=== PATIENT | male | born 1955 | race Asian ===

== ENCOUNTER → 2016-07-13 | Outpatient (CLI) | payer BC ==
[~2016-07-13] MED LIST: CLR10 PO; DOCU100C31 PO; DOCUSATE PO; FLNIN NAE; FLUT0.15 NAE; IBUP-1050 PO; LINA1CAP2 PO; METHPOW7 PO; MULT-506 PO; POLY335019 PO; citrucel PO
[2016-07-13 12:45] LABS: BASO % 0.3 %; BASO ABS # 0.02 K/uL (0-0.2); COMPLETE YES; EOS % 3.4 %; IG% 0.3 %; LYMPH % 37.5 %; LYMPH ABS # 2.39 K/uL (1.2-3.4); MEAN CORPUSCULAR HEMOGLOBIN 29.1 pg (25-34); MEAN CORPUSCULAR HGB CONC 33.9 g/dl (32-36); MEAN PLATELET VOLUME 10.3 fL (7.4-10.4); MONO % 7.8 %; NEUT % 50.7 %; PLATELET COUNT 237 K/uL (130-400); RED BLOOD COUNT 4.77 M/uL (4.7-6.1); WHITE BLOOD COUNT 6.38 K/uL (4.8-10.8)
[2016-07-13 14:29] LABS: ALT/SGPT 60 U/L (12-78); BLOOD UREA NITROGEN 17 mg/dl (7-18); BUN/CREATININE RATIO 15.5 (10-20); CALCIUM 8.8 mg/dl (8.5-10.1); CARBON DIOXIDE 28 mmol/L (21-32); CHLORIDE 106 mmol/L (98-107); GLUCOSE 97 mg/dl (70-99); POTASSIUM 4.5 mmol/L (3.5-5.1); SODIUM 140 mmol/L (136-145)
[2016-07-13 14:59] LABS: ALB/GLOB RATIO 1.1 (0.9-2); ALKALINE PHOSPHATASE 96 U/L (45-117); AST/SGOT 28 U/L (15-37)
[2016-07-17 22:32] LABS: CHROMOGRANIN A <5 ng/mL (< OR = 15); SEROTONIN** TC 29851 137 ng/mL (56-244)
== END | disposition home or self-care (01) ==
LOC: C.LAB1850 11:24
PROVIDERS: ATTEND Internal Medicine Pulmonary Disease
DX: R10.11 Right upper quadrant pain (principal); R14.0 Abdominal distension (gaseous); C7A.020 Malignant carcinoid tumor of the appendix

== ENCOUNTER → 2016-07-14 | Outpatient (CLI) | payer BC ==
[~2016-07-14] MED LIST changes: +OPTIRAY 320 IV PRN
--- NOTE | 2016-07-14 08:32 | DIAGNOSTIC IMAGING REPORT ---
CT SCAN OF THE ABDOMEN AND PELVIS WITH IV CONTRAST CLINICAL HISTORY: Generalized abdominal pain. Bloating. COMPARISON STUDY: Abdominal CT dated 06/28/2011. PET/CT dated 11/16/2011. TECHNIQUE: Following the IV administration of 92 cc of Optiray 320, CT scan of the abdomen and pelvis is performed from the lung bases to the proximal femora. Images are reviewed in the axial, sagittal, and coronal planes. IV contrast was administered without complication. Automated dose control exposure was utilized. CT DOSE: 404.85 mGy.cm FINDINGS: Lung bases: The heart is normal in size and without pericardial effusion. A 10 mm groundglass lesion in the right lower lobe is similar appearance to studies performed in 2012. No airspace consolidation or pleural effusion is identified. Liver: The contrast-enhanced liver is normal in size, contour, and attenuation. There is no intrahepatic biliary ductal dilatation. The hepatic veins and portal veins are patent. Gallbladder: Surgically absent noting clips in the gallbladder fossa. Spleen: Normal in size and attenuation. Pancreas: Unremarkable. Adrenal glands: Unremarkable. Kidneys: The contrast enhanced kidneys demonstrate mild cortical atrophy and are without hydronephrosis. The kidneys enhance symmetrically. A subcentimeter cortical hypodensity in the left kidney seen on image #153 likely represents a cyst but is too small for definitive characterization. Abdominal vasculature: The abdominal aorta is normal in course and caliber. Bowel: The small bowel and colon are normal in course and caliber. There is mild to moderate colonic fecal retention. The appendix is surgically absent. Peritoneum: There is no intraperitoneal free air or abdominal ascites. Lymphadenopathy: None. Pelvic viscera: There is median lobe hypertrophy of the prostate gland. The bladder wall is mildly thickened and trabeculated consistent with chronic caliber obstruction. There are small bilateral fat-containing inguinal hernias. Skeletal structures: No lytic or blastic lesions are seen. IMPRESSION: 1. There are no acute infectious or inflammatory findings in the abdomen or pelvis. 2. Prostatomegaly with findings suggestive of chronic bladder outlet obstruction. 3. A 10 mm groundglass lesion in the right lower lobe is similar appearance to study dated 2011. A low-grade neoplasm remains the diagnosis of exclusion. 4. Additional findings as above. Electronically signed by: Alejandro Rothman M.D. 07/14/2016 8:30 AM Dictated Date/Time: 07/14/2016 8:23 AM
== END | disposition home or self-care (01) ==
LOC: C.CTS 06:46
PROVIDERS: ATTEND Internal Medicine Pulmonary Disease
DX: R14.0 Abdominal distension (gaseous) (principal); R10.9 Unspecified abdominal pain; R10.11 Right upper quadrant pain; N40.0 Benign prostatic hyperplasia without lower urinary tract symptoms; R91.1 Solitary pulmonary nodule

== ENCOUNTER → 2016-08-21 | Day surgery (SDC) | payer BC ==
[~2016-08-21] VITALS: Ht 165.1 cm; Wt 75.0 kg
[~2016-08-21] MED LIST changes: +500ML BSSPLUS 0.5ML EPI1:1000 IRRIG ONE; +ACETAMINOPHEN 325 MG TAB PO PRN; +ATROPINE SULFATE 0.1 MG/ML 5ML SYR IV PRN; +ATROPINE SULFATE 1% OP OINT PER APPLICATION CHARGE ONE; +ATROPINE SULFATE 1% OP SOLN 2 ML BTL ONE; +BSS FLUSH ONE; +BUPIVACAINE HCL 0.75% 10 ML AMP/VIAL ONE; +CEFAZOLIN SOD 1 GM VIAL ONE; +DEXAMETHASONE SOD INJ 4 MG/ML VIAL ONE; +EpHEDrine SULFATE INJ 50 MG/ML AMP IV PRN; +EpINEphrine INJ 1MG/ML AMP 1 MG/ML AMP ONE; +FENTANYL CITRATE INJ 50 MCG/1 ML 2 ML VIAL IV PRN; +HYALURONIDASE HUMAN 150 UNIT/ML INJ ONE; +INDOCYANINE GREEN 25 MG/10 ML ONE; +LACTATED RINGER'S 1000ML 500 ML IV SCH; +LIDOCAINE MPF 4% INJ INJ ONE; +MIDAZOLAM HCL 1 MG/ML 2ML VIAL ONE; +NEOMYCIN/POLYMYX/DEXAMETH OP OINT PER APP CHARGE ONE; +OCUCOAT 1 ML SOLN IO ONE; +ONDANSETRON INJ 2 MG/ML 2 ML VIAL IV PRN; -OPTIRAY 320 IV PRN; +PHENYLEPHRINE HCL 10% OP SOLN PER DROP CHARGE ONE; +POVIDONE-IODINE OP SOLN 30 ML BTL OPR ONE; +PROPARACAINE 0.5% OP SOLN PER DROP CHARGE OPR SCH; +PROPOFOL IV EMULSION 10 MG/ML 20 ML VIAL IV ONE; +TIMOLOL MALEATE 0.5% OP SOLN PER DROP CHARGE ONE; +TRIAMCINOLONE ACETONIDE OPHTH 40 MG/ML VIAL STERILE IO ONE
[2016-08-21] MEDS: PHENYLEPHRINE HCL 2.5% OP SOLN PER DROP CHARGE OPR SCH ×2 (07:46→07:51)
[2016-08-21] MEDS: TROPICAMIDE 1% OP SOLN PER DROP CHARGE OPR SCH ×2 (07:47→07:52)
[2016-08-21 08:09] VITALS: Ht 165.1 cm; Wt 75.0 kg
--- NOTE | 2016-08-21 08:48 | History & Physical Bridge - SC ---
H&P Re-Evaluation Bridge Note: Pt has a retinal detachment right eye and is here for vitrectomy right eye. I have examined the patient, reviewed the History & Physical and in the interval since the performance of the History & Physical I have noted the following changes of clinical significance: No changes noted
[2016-08-21 10:09] VITALS: TEMP 36.4
--- NOTE | 2016-08-21 10:12 | [facility] Operative Report ---
Operative Report Date of Service August 21, 2016. Operative Report PREOPERATIVE DIAGNOSIS: Retinal detachment, right eye. ICD 10: H33.011 POSTOPERATIVE DIAGNOSIS: same. PROCEDURE: 1. Pars plana vitrectomy, 23 gauge. 2. Fluid-air exchange. 3. Endolaser. 4 Air-gas exchange with SF6 20%. All to the right eye. CPT CODE: 14104 SURGEON: Roi Lawson D.O. COMPLICATIONS: None. ESTIMATED BLOOD LOSS: None. SPECIMENS: None. ANESTHESIA: Retrobulbar block and MAC. INDICATIONS FOR PROCEDURE: Surgery is indicated to decrease risk of vision loss and potentially improve vision. CONSENT: The risks, benefits and alternatives were discussed with the patient including but not limited to decreased visual acuity, failure to achieve desired results, loss of the eye, infection, pain, glaucoma, lens changes, retinal tears, retinal detachment, the need for more procedures, drooping of the eyelid, blindness, and double vision. The patient is aware of risks and consents to the surgery. Consent is signed and on the chart. OPERATION AND FINDINGS: The patient was brought to the operating room where the patient was identified by name, date, and medical record number. The surgical site was confirmed with the informed written consent. The patient was sedated by the anesthesiology team after which a 50:50 mixture of 4% lidocaine and 0.75% bupivacaine with hyaluronidase was administered in a standard retrobulbar fashion. A total of 4 ml was administered without difficulty. The patient was then prepped and draped in the usual sterile manner for retinal surgery. A wire lid speculum was placed and an Reed 23-gauge trocar cannula system was employed. The inferior temporal trocar cannula was first placed in an angled fashion 3.75mm posterior to the surgical limbus and the infusion cannula was inserted into this cannula after which the intravitreal position was verified prior to turning the infusion on. Two more trocar cannulas were then inserted in an angled fashion, one in the superior temporal, and one in the superior nasal quadrant both 3.75mm posterior to the surgical limbus. A light pipe and vitrector were then introduced into the eye and the BIOM wide angle viewing system was brought into place. Posterior inspection revealed a retinal detachment from 9 to 12 o'clock with the inciting retinal break at 11 o'clock. The macula was attached. Standard core vitrectomy was performed and the vitreous was insured to be totally detached from the posterior pole with the aid of the vitrector. The vitreous base was shaved for 360 degrees. There were also noted small thin areas at 9 and 10 o'clock also with questionable retinal breaks with the aide of scleral depression but no other retinal tears were noted. Fluid air exchange was performed and the subretinal fluid was drained through a small retinotomy site that was fashioned outside the temporal arcade. Endolaser was then used to place laser around the inciting retinal break and the drainage retinotomy. Next , an air gas exchange was performed with SF620% for a complete fill of the eye. The trocar cannulas were then removed and found to be air tight. The intraocular pressure was found to be within normal limits by palpation and subconjunctival injections of Kefzol and dexamethasone were administered inferiorly and superiorly. The wire lid speculum was removed. Maxitrol, atropine and timolol were applied to the surface of the eye. A light patch and shield were taped over the surface of the eye and the patient left the Operating Room in stable condition having tolerated the procedure well. DISPOSITION: A gas bracelet was placed on the patient's wrist and gas precautions reviewed as well as the positioning instructions. The patient has an appointment the following morning in the Ophthalmology Clinic. The patient is to call immediately if there are any problems overnight. I attest to the content of the Intraoperative Record and any orders documented therein. Any exceptions are noted below.
--- NOTE | 2016-08-21 10:14 | Discharge Instructions-SurgCtr ---
Discharge Instructions Date of Service August 21, 2016. Visit Reason for Visit: Right Eye Retinal Detachment Discharge Discharge Diagnosis / Problem: same Discharge Goals Goal(s): Improve function Activity Recommendations Activity Limitations: per Instructions/Follow-up section Anesthesia . Post Anesthesia Instructions: If you have had General Anesthesia or IV Sedation: * Do not drive today. * Resume driving when surgeon permits. * Do not make important decisions or sign legal documents today. * Call surgeon for: 1. Temperature elevations greater than 101 degrees F. 2. Uncontrollable pain. 3. Excessive bleeding. 4. Persistent nausea and vomiting. 5. Medication intolerance (nausea, vomiting or rash). * For nausea and vomiting use only clear liquids such as: tea, soda, bouillon until nausea subsides, then gradually increase diet as tolerated. * If you have any concerns or questions, call your surgeon's office. If physician is unavailable and it is an emergency, call 911 or go to the nearest emergency room. . Instructions / Follow-Up Instructions / Follow-Up * May take Tylenol if needed for discomfort. * Do NOT lay flat on back and position head as follows: Face down/chin down or face forward during daytime. Sleep right side down. * Do NOT remove green bracelet until instructed to do so by your surgeon and follow these precautions: * No air travel * No travel above 2500 feet * No nitrous oxide (N2O). * Do NOT remove eye shield. * NO straining, heavy lifting (>15 pounds) or bending below waist. * Avoid getting water or soap directly into operative eye. * Do NOT rub eye. If you experience increasing eye pain not relieved by medication, please contact us immediately at [phone]. If you are unable to reach someone at the above number, call [phone] and ask to speak with the EYE DOCTOR [facility]. Inform them that you are a Dr. Lawson patient who had recent surgery. Diet Recommendations Home Diet: resume previous diet Procedures Procedures Performed: Right Eye 23 Gauge Vitrectomy, Endolaser, SF6 Gas Insertion Pending Studies Studies pending at discharge: no Medical Emergencies . Who to Call and When: Medical Emergencies: If at any time you feel your situation is an emergency, please call 911 immediately. . Non-Emergent Contact Non-Emergency issues call your: Business Control Manager . . "Provider Documentation" section prepared by Rio Lawson. .
[2016-08-21 10:37] VITALS: BP 124/82; PULSE 47; O2SAT 100
--- NOTE | 2016-08-21 10:45 | Anesthesia Progress Nt - [facility] ---
Anesthesia Post Op Note Date & Time August 21, 2016 at 10:45 Vital Signs Pain Intensity: 0 Vital Signs Past 12 Hours Date Time Temp Pulse Resp B/P Pulse Ox O2 Delivery O2 Flow Rate FiO2 08/21/16 10:37 47 16 124/82 100 Room Air 08/21/16 10:09 36.4 55 16 125/83 100 Room Air 08/21/16 07:39 36.6 65 16 126/84 99 Room Air Notes Mental Status: alert / awake / arousable, participated in evaluation Pt Amnestic to Procedure: Yes Nausea / Vomiting: adequately controlled Pain: adequately controlled Airway Patency, RR, SpO2: stable & adequate BP & HR: stable & adequate Hydration State: stable & adequate Anesthetic Complications: no major complications apparent
== END | disposition home or self-care (01) ==
LOC: X.SURG 07:27
PROVIDERS: ATTEND Ophthalmology
DX: H33.011 Retinal detachment with single break, right eye (principal); K58.9 Irritable bowel syndrome, unspecified; Z83.3 Family history of diabetes mellitus; Z82.49 Family history of ischemic heart disease and other diseases of the circulatory system

== ENCOUNTER → 2017-01-13 | Day surgery (SDC) | payer BC ==
[2017-01-05 07:40] VITALS: Ht 165.1 cm; Wt 75.0 kg
[~2017-01-13] VITALS: Ht 165.1 cm; Wt 75.0 kg
[~2017-01-13] MED LIST changes: +500ML BSS 0.3ML EPI 1:1000PF IRRIG ONE; -500ML BSSPLUS 0.5ML EPI1:1000 IRRIG ONE; +AMVISC PLUS 0.8ML SYRINGE INT OCU ONE; -ATROPINE SULFATE 1% OP OINT PER APPLICATION CHARGE ONE; -ATROPINE SULFATE 1% OP SOLN 2 ML BTL ONE; +AcetaZOLAMIDE 250 MG TAB PO SCH; +BETAXOLOL HCL 0.25% OP SUSP PER DROP CHARGE OPR SCH; +BRIMONIDINE TART 0.2% OP SOLN PER DROP CHARGE ONE; -BUPIVACAINE HCL 0.75% 10 ML AMP/VIAL ONE; -CEFAZOLIN SOD 1 GM VIAL ONE; -DEXAMETHASONE SOD INJ 4 MG/ML VIAL ONE; -DOCUSATE PO; +ENDOCOAT 0.85ML SYRINGE INT OCU ONE; -FENTANYL CITRATE INJ 50 MCG/1 ML 2 ML VIAL IV PRN; -FLNIN NAE; -HYALURONIDASE HUMAN 150 UNIT/ML INJ ONE; -INDOCYANINE GREEN 25 MG/10 ML ONE; +LIDOCAINE 4% OP SOLN DROP CHARGE ONE; +LIDOCAINE 4% OP SOLN DROP CHARGE OPR SCH; +LIDOCAINE HCL 1% MPF 2 ML VIAL ONE; -LIDOCAINE MPF 4% INJ INJ ONE; +MIX: 4ML BSS 1ML EPI 1:1000 PF INSTIL ONE; +MOXIFLOXACIN OPH SOLN PER DROP CHARGE ONE; -NEOMYCIN/POLYMYX/DEXAMETH OP OINT PER APP CHARGE ONE; -PHENYLEPHRINE HCL 10% OP SOLN PER DROP CHARGE ONE; +POVIDONE-IODINE OP SOLN 30 ML BTL ONE; -POVIDONE-IODINE OP SOLN 30 ML BTL OPR ONE; -PROPOFOL IV EMULSION 10 MG/ML 20 ML VIAL IV ONE; -TIMOLOL MALEATE 0.5% OP SOLN PER DROP CHARGE ONE; +TOBRAMYCIN/DEXAMETHASONE OPH OINT PER APPLN CHARGE ONE; -TRIAMCINOLONE ACETONIDE OPHTH 40 MG/ML VIAL STERILE IO ONE; +TROPICAMIDE 0.5% OP SOLN 15 ML BTL OPR SCH
--- NOTE | 2017-01-13 07:35 | History & Physical Bridge - [place] ---
H&P Re-Evaluation Bridge Note: I have examined the patient, reviewed the History & Physical and in the interval since the performance of the History & Physical I have noted the following changes of clinical significance: No changes noted
[2017-01-13] MEDS: PHENYLEPHRINE HCL 2.5% OP SOLN PER DROP CHARGE OPR SCH ×2 (07:54→07:59)
[2017-01-13] MEDS: TROPICAMIDE 1% OP SOLN PER DROP CHARGE OPR SCH ×2 (07:55→08:00)
[2017-01-13] MEDS: CYCLOPENTOLATE HCL 1% OP SOLN PER DROP CHARGE OPR SCH ×2 (07:56→08:01)
[2017-01-13] MEDS: MOXIFLOXACIN OPH SOLN PER DROP CHARGE OPR SCH ×2 (07:57→08:07)
--- NOTE | 2017-01-13 08:50 | Discharge Instructions-SurgCtr ---
Discharge Instructions Date of Service Jan 13, 2017. Visit Reason for Visit: Right Cataract Discharge Discharge Diagnosis / Problem: lens implant right eye Discharge Goals Goal(s): Improve function Activity Recommendations Activity Limitations: resume your previous activity Lifting Limitations: no more than 10 pounds Exercise/Sports Limitations: gradually increase as tolerated May Resume Sexual Activity: when tolerated Shower/Bathe: tomorrow Driving or Machine Use: resume 1 day after discharge Anesthesia . Post Anesthesia Instructions: If you have had General Anesthesia or IV Sedation: * Do not drive today. * Resume driving when surgeon permits. * Do not make important decisions or sign legal documents today. * Call surgeon for: 1. Temperature elevations greater than 101 degrees F. 2. Uncontrollable pain. 3. Excessive bleeding. 4. Persistent nausea and vomiting. 5. Medication intolerance (nausea, vomiting or rash). * For nausea and vomiting use only clear liquids such as: tea, soda, bouillon until nausea subsides, then gradually increase diet as tolerated. * If you have any concerns or questions, call your surgeon's office. If physician is unavailable and it is an emergency, call 911 or go to the nearest emergency room. . Instructions / Follow-Up Instructions / Follow-Up ACTIVITY RECOMMENDATIONS: * Light activities. * Mild irritation and blurred vision are common for the first few days. * You may walk outside, read, watch television. * Redness around the white part of the eye is common. MEDICATIONS: Resume previous medications unless instructed otherwise by your surgeon. * Take white Diamox (Acetazolamide) tablet at 1 pm today. Start all eye drops at 1 pm today: * Eye drops (today and tomorrow): Prednisone - one drop in operative eye every 3 hours while awake Ofloxacin - one drop in operative eye every 3 hours while awake Prolensa - one drop in operative eye once daily SPECIAL CARE INSTRUCTIONS: * Tape plastic shield over eye to sleep at night. Call your doctor at with any concerns or problems. FOLLOW UP VISIT: Follow-up with Dr Lorenzo at [place] office as scheduled. Diet Recommendations Home Diet: no limitations Procedures Procedures Performed: cataract extraction with lens implant Pending Studies Studies pending at discharge: no Medical Emergencies . Who to Call and When: Medical Emergencies: If at any time you feel your situation is an emergency, please call 911 immediately. . Non-Emergent Contact Non-Emergency issues call your: Middleware Systems Architect Call Non-Emergent contact if: your pain is not controlled [phone] . . "Provider Documentation" section prepared by Matthew Lorenzo. .
--- NOTE | 2017-01-13 08:53 | [facility] Operative Report ---
Operative Report Date of Service Jan 13, 2017. Operative Report 1. PREOPERATIVE DIAGNOSIS: Pre Senile nuclear cataract, right eye. 2. POSTOPERATIVE DIAGNOSIS: Pre Senile nuclear cataract, right eye. 3. PROCEDURE: Phacoemulsification of right cataract with posterior chamber lens implant, type Bausch [employer] Lomb, model MI60L, power +9.0 diopters. ANESTHESIA: Local standby. SURGEON: Dr. Lorenzo. COMPLICATIONS: None. OPERATING TIME: 10 minutes. 4. OPERATION AND FINDINGS: DESCRIPTION OF PROCEDURE: The right pupil was dilated. The anesthetic was administered using a topical technique. The right eye was prepped and draped. A speculum was placed. A clear corneal incision was formed. The chamber was filled with Amvisc Plus and Endocoat. Epinephrine solution was used. A paracentesis was placed. A capsulorrhexis was performed. The nucleus was hydrodissected. The lens was removed with phacoemulsification. Time was 6.17 seconds. The aspiration unit was used to remove the cortex. The capsule was filled with Amvisc Plus. The lens implant was folded and placed into the capsule. The incision was hydrated. The Amvisc was aspirated. The wound was secure. The chamber was deep. The pupil was round. Brimonidine, TobraDex ointment and Vigamox solution were placed. The speculum was removed. The patient was returned to the Recovery Room in stable condition. I attest to the content of the Intraoperative Record and any orders documented therein. Any exceptions are noted below. The scribe's documentation has been prepared in my presence, under my direction and personally reviewed by me in its entirety. I confirm that the note above accurately reflects all work, treatment, procedures, and medical decision making performed by me. I personally scribed for Matthew Lorenzo M.D. ([email or web address]) on 01/13/17 at 08:53. Electronically submitted by Gloria Walker ([email or web address]).
[2017-01-13 08:55] VITALS: TEMP 36.5
[2017-01-13 09:19] VITALS: BP 126/83; PULSE 67; O2SAT 99
--- NOTE | 2017-01-13 09:27 | Anesthesiology Progress Note ---
Anesthesia Post Op Note Date & Time Jan 13, 2017 at 09:27 Vital Signs Pain Intensity: 0 Vital Signs Past 12 Hours Date Time Temp Pulse Resp B/P (MAP) Pulse Ox O2 Delivery O2 Flow Rate FiO2 01/13/17 09:19 67 16 126/83 (97) 99 Room Air 01/13/17 08:55 36.5 62 12 124/79 (94) 100 Room Air 01/13/17 07:45 36.6 80 16 128/81 (97) 97 Room Air Notes Mental Status: alert / awake / arousable, participated in evaluation Nausea / Vomiting: adequately controlled Pain: adequately controlled Airway Patency, RR, SpO2: stable & adequate BP & HR: stable & adequate Hydration State: stable & adequate Anesthetic Complications: no major complications apparent
== END | disposition home or self-care (01) ==
LOC: X.SURG 07:10
PROVIDERS: ATTEND Specialist
DX: H26.8 Other specified cataract (principal)

== ENCOUNTER → 2017-01-20 | Day surgery (SDC) | payer BC ==
[2017-01-19 12:25] VITALS: Ht 165.1 cm; Wt 75.0 kg
[~2017-01-20] VITALS: Ht 165.1 cm; Wt 75.0 kg
[~2017-01-20] MED LIST changes: +BETAXOLOL HCL 0.25% OP SUSP PER DROP CHARGE OPL SCH; -BETAXOLOL HCL 0.25% OP SUSP PER DROP CHARGE OPR SCH; +LIDOCAINE 4% OP SOLN DROP CHARGE OPL SCH; -LIDOCAINE 4% OP SOLN DROP CHARGE OPR SCH; -ONDANSETRON INJ 2 MG/ML 2 ML VIAL IV PRN; +PROPARACAINE 0.5% OP SOLN PER DROP CHARGE OPL SCH; -PROPARACAINE 0.5% OP SOLN PER DROP CHARGE OPR SCH; -TROPICAMIDE 0.5% OP SOLN 15 ML BTL OPR SCH
[2017-01-20] MEDS: PHENYLEPHRINE HCL 2.5% OP SOLN PER DROP CHARGE OPL SCH ×2 (12:25→12:30)
[2017-01-20] MEDS: TROPICAMIDE 1% OP SOLN PER DROP CHARGE OPL SCH ×2 (12:26→12:31)
[2017-01-20] MEDS: CYCLOPENTOLATE HCL 1% OP SOLN PER DROP CHARGE OPL SCH ×2 (12:27→12:32)
[2017-01-20] MEDS: MOXIFLOXACIN OPH SOLN PER DROP CHARGE OPL SCH ×2 (12:28→12:34)
--- NOTE | 2017-01-20 13:16 | Discharge Instructions-SurgCtr ---
Discharge Instructions Date of Service Jan 20, 2017. Visit Reason for Visit: Cataract Left Eye Discharge Discharge Diagnosis / Problem: lens implant left eye Discharge Goals Goal(s): Improve function Activity Recommendations Activity Limitations: resume your previous activity Lifting Limitations: no more than 10 pounds Exercise/Sports Limitations: gradually increase as tolerated May Resume Sexual Activity: when tolerated Shower/Bathe: tomorrow Driving or Machine Use: resume 1 day after discharge Anesthesia . Post Anesthesia Instructions: If you have had General Anesthesia or IV Sedation: * Do not drive today. * Resume driving when surgeon permits. * Do not make important decisions or sign legal documents today. * Call surgeon for: 1. Temperature elevations greater than 101 degrees F. 2. Uncontrollable pain. 3. Excessive bleeding. 4. Persistent nausea and vomiting. 5. Medication intolerance (nausea, vomiting or rash). * For nausea and vomiting use only clear liquids such as: tea, soda, bouillon until nausea subsides, then gradually increase diet as tolerated. * If you have any concerns or questions, call your surgeon's office. If physician is unavailable and it is an emergency, call 911 or go to the nearest emergency room. . Instructions / Follow-Up Instructions / Follow-Up ACTIVITY RECOMMENDATIONS: * Light activities. * Mild irritation and blurred vision are common for the first few days. * You may walk outside, read, watch television. * Redness around the white part of the eye is common. MEDICATIONS: Resume previous medications unless instructed otherwise by your surgeon. * Take white Diamox (Acetazolamide) tablet at 3 pm today. Start all eye drops at 3 pm today: * Eye drops (today and tomorrow): Prednisone - one drop in operative eye every 3 hours while awake Ofloxacin - one drop in operative eye every 3 hours while awake SPECIAL CARE INSTRUCTIONS: * Tape plastic shield over eye to sleep at night. Call your doctor at with any concerns or problems. FOLLOW UP VISIT: Follow-up with Dr Lorenzo at [place] office as scheduled. Diet Recommendations Home Diet: no limitations Procedures Procedures Performed: cataract extraction with lens implant Pending Studies Studies pending at discharge: no Medical Emergencies . Who to Call and When: Medical Emergencies: If at any time you feel your situation is an emergency, please call 911 immediately. . Non-Emergent Contact Non-Emergency issues call your: Casting And Curing Operator Call Non-Emergent contact if: your pain is not controlled [phone] . . "Provider Documentation" section prepared by Matthew Lorenzo. .
--- NOTE | 2017-01-20 13:17 | [facility] Operative Report ---
Operative Report Date of Service Jan 20, 2017. Operative Report 1. PREOPERATIVE DIAGNOSIS: Pre Senile nuclear cataract, left eye. 2. POSTOPERATIVE DIAGNOSIS: Pre Senile nuclear cataract, left eye. 3. PROCEDURE: Phacoemulsification of left cataract with posterior chamber lens implant, type Bausch & Lomb, model MI60L, power +9.0 diopters. ANESTHESIA: Local standby. SURGEON: Dr. Lorenzo. COMPLICATIONS: None. OPERATING TIME: 10 minutes. 4. OPERATION AND FINDINGS: DESCRIPTION OF PROCEDURE: The left pupil was dilated. The anesthetic was administered using a topical technique. The left eye was prepped and draped. A speculum was placed. A clear corneal incision was formed. The chamber was filled with Amvisc Plus and Endocoat. Epinephrine solution was used. A paracentesis was placed. A capsulorrhexis was performed. The nucleus was hydrodissected. The lens was removed with phacoemulsification. Time was 2.91 seconds. The aspiration unit was used to remove the cortex. The capsule was filled with Amvisc Plus. The lens implant was folded and placed into the capsule. The incision was hydrated. The Amvisc was aspirated. The wound was secure. The chamber was deep. The pupil was round. Brimonidine, TobraDex ointment and Vigamox solution were placed. The speculum was removed. The patient was returned to the Recovery Room in stable condition. I attest to the content of the Intraoperative Record and any orders documented therein. Any exceptions are noted below. The scribe's documentation has been prepared in my presence, under my direction and personally reviewed by me in its entirety. I confirm that the note above accurately reflects all work, treatment, procedures, and medical decision making performed by me. I personally scribed for Matthew Lorenzo M.D. ([email or web address]) on 01/20/17 at 13:17. Electronically submitted by Gloria Walker ([email or web address]).
--- NOTE | 2017-01-20 13:27 | Anesthesia Progress Nt - [facility] ---
Anesthesia Post Op Note Date & Time Jan 20, 2017 at 13:27 Vital Signs Vital Signs Past 12 Hours Date Time Temp Pulse Resp B/P (MAP) Pulse Ox O2 Delivery O2 Flow Rate FiO2 01/20/17 12:19 36.8 56 16 126/83 (97) 99 Room Air Notes Mental Status: alert / awake / arousable, participated in evaluation Pt Amnestic to Procedure: Yes Nausea / Vomiting: adequately controlled Pain: adequately controlled Airway Patency, RR, SpO2: stable & adequate BP & HR: stable & adequate Hydration State: stable & adequate Anesthetic Complications: no major complications apparent
[2017-01-20 13:54] VITALS: BP 124/67; PULSE 61; O2SAT 100
== END | disposition home or self-care (01) ==
LOC: X.SURG 10:37
PROVIDERS: ATTEND Specialist
DX: H26.8 Other specified cataract (principal); Z98.41 Cataract extraction status, right eye; Z88.1 Allergy status to other antibiotic agents; Z90.49 Acquired absence of other specified parts of digestive tract; Z90.89 Acquired absence of other organs; Z68.27 Body mass index [BMI] 27.0-27.9, adult

== ENCOUNTER → 2017-04-26 | Outpatient (CLI) | payer OTHER ==
[~2017-04-26] MED LIST changes: -500ML BSS 0.3ML EPI 1:1000PF IRRIG ONE; -ACETAMINOPHEN 325 MG TAB PO PRN; -AMVISC PLUS 0.8ML SYRINGE INT OCU ONE; -ATROPINE SULFATE 0.1 MG/ML 5ML SYR IV PRN; -AcetaZOLAMIDE 250 MG TAB PO SCH; -BETAXOLOL HCL 0.25% OP SUSP PER DROP CHARGE OPL SCH; -BRIMONIDINE TART 0.2% OP SOLN PER DROP CHARGE ONE; -BSS FLUSH ONE; -ENDOCOAT 0.85ML SYRINGE INT OCU ONE; -EpHEDrine SULFATE INJ 50 MG/ML AMP IV PRN; -EpINEphrine INJ 1MG/ML AMP 1 MG/ML AMP ONE; -LACTATED RINGER'S 1000ML 500 ML IV SCH; -LIDOCAINE 4% OP SOLN DROP CHARGE ONE; -LIDOCAINE 4% OP SOLN DROP CHARGE OPL SCH; -LIDOCAINE HCL 1% MPF 2 ML VIAL ONE; -MIDAZOLAM HCL 1 MG/ML 2ML VIAL ONE; -MIX: 4ML BSS 1ML EPI 1:1000 PF INSTIL ONE; -MOXIFLOXACIN OPH SOLN PER DROP CHARGE ONE; -OCUCOAT 1 ML SOLN IO ONE; -POVIDONE-IODINE OP SOLN 30 ML BTL ONE; -PROPARACAINE 0.5% OP SOLN PER DROP CHARGE OPL SCH; -TOBRAMYCIN/DEXAMETHASONE OPH OINT PER APPLN CHARGE ONE
--- NOTE | 2017-04-26 07:59 | DIAGNOSTIC IMAGING REPORT ---
ULTRASOUND RIGHT GROIN NONVASCULAR CLINICAL HISTORY: Right groin pain. FINDINGS: Real-time grayscale sonography of the right groin is performed to assess for the presence of inguinal hernia. There is a small reducible fat-containing inguinal hernia identified. No bowel or fluid is seen within the hernia sac. No inguinal adenopathy is identified. IMPRESSION: There is a small and reducible fat-containing right inguinal hernia. Electronically signed by: Alejandro Rothman M.D. 04/26/2017 7:58 AM Dictated Date/Time: 04/26/2017 7:57 AM
== END | disposition home or self-care (01) ==
LOC: C.ULTR 07:05
PROVIDERS: ATTEND Physician Assistant Medical
DX: R10.11 Right upper quadrant pain (principal)

== ENCOUNTER → 2017-08-24 | Outpatient (CLI) | payer OTHER ==
[2017-08-24 09:45] LABS: BASO % 0.1 %; BASO ABS # 0.01 K/uL (0-0.2); EOS % 3.4 %; EOS ABS # 0.23 K/uL (0-0.5); HEMATOCRIT 42.5 % (42-52); HEMOGLOBIN 14.2 g/dL (14.0-18.0); IG# 0.02 K/uL (0.00-0.02); LYMPH % 43.7 %; LYMPH ABS # 2.96 K/uL (1.2-3.4); MEAN CELL VOLUME 86.9 fL (80-100); MEAN CORPUSCULAR HGB CONC 33.4 g/dl (32-36); MEAN PLATELET VOLUME 10.3 fL (7.4-10.4); MONO % 6.8 %; MONO ABS # 0.46 K/uL (0.11-0.59); NEUT % 45.7 %; NEUT ABS # 3.09 K/uL (1.4-6.5); PLATELET COUNT 209 K/uL (130-400); RED CELL DISTRIBUTION WIDTH CV 12.9 % (11.5-14.5); RED CELL DISTRIBUTION WIDTH SD 41.3 fL (36.4-46.3); WHITE BLOOD COUNT 6.77 K/uL (4.8-10.8)
[2017-08-24 10:06] LABS: ALBUMIN 3.4 gm/dl (3.4-5.0); ALKALINE PHOSPHATASE 92 U/L (45-117); ALT/SGPT 42 U/L (12-78); AST/SGOT 22 U/L (15-37); BLOOD UREA NITROGEN 14 mg/dl (7-18); CALCIUM 8.4 mg/dl (8.5-10.1); CARBON DIOXIDE 29 mmol/L (21-32); CHOLESTEROL 188 mg/dl (0-200); CREATININE 1.14 mg/dl (0.60-1.40); GLUCOSE 92 mg/dl (70-99); LDL CHOLESTEROL CALCULATED 122 mg/dl; POTASSIUM 4.5 mmol/L (3.5-5.1); SODIUM 139 mmol/L (136-145)
== END | disposition home or self-care (01) ==
LOC: C.LAB1850 07:24
PROVIDERS: ATTEND Internal Medicine Pulmonary Disease
DX: Z00.00 Encounter for general adult medical examination without abnormal findings (principal); J30.89 Other allergic rhinitis; J30.1 Allergic rhinitis due to pollen; C7A.020 Malignant carcinoid tumor of the appendix; K58.9 Irritable bowel syndrome, unspecified; R91.8 Other nonspecific abnormal finding of lung field; K40.90 Unilateral inguinal hernia, without obstruction or gangrene, not specified as recurrent

== ENCOUNTER 2019-09-11 20:20 | Observation (INO) ==
[2019-09-11 21:49] LABS: Basophils # (auto) 0.01 K/uL (0-0.2); Basophils % (auto) 0.1 %; Eosinophils # (auto) 0.23 K/uL (0-0.5); Eosinophils % (auto) 3.4 %; Hemoglobin 14.8 g/dL (14.0-18.0); Immature Granulocytes # (auto) 0.01 K/uL (0.00-0.02); Immature Granulocytes % (auto) 0.1 %; Lymphocytes # (auto) 2.99 K/uL (1.2-3.4); Mean Corpuscular Hemoglobin 29.8 pg (25-34); Mean Corpuscular Hgb Conc 33.6 g/dL (32-36); Mean Corpuscular Volume 88.7 fL (80-100); Monocytes # (auto) 0.46 K/uL (0.11-0.59); Monocytes % (auto) 6.8 %; Neutrophils # (auto) 3.09 K/uL (1.4-6.5); Neutrophils % (auto) 45.6 %; Platelet Count 241 K/uL (130-400); RDW Coefficient of Variation 12.8 % (11.5-14.5); RDW Standard Deviation 41.1 fL (36.4-46.3); Red Blood Count 4.96 M/uL (4.7-6.1); White Blood Count 6.79 K/uL (4.8-10.8)
[2019-09-11 22:00] LABS: Partial Thromboplastin Time 26.8 Seconds (21.0-31.0); Prothrombin Time 10.3 Seconds (9.0-12.0)
[2019-09-11] MEDS ORDERED: GI COCKTAIL ED USE PO ONE (22:05)
[2019-09-11] MEDS ORDERED: FAMOTIDINE 20MG IV PUSH 20 MG/5 ML SYR IV STA (22:05)
[2019-09-11] MEDS ORDERED: SODIUM CHLORIDE 0.9% 1000ML 1,000 ML IV ONE (22:05)
[2019-09-11] MEDS ORDERED: ASPIRIN CHEW 324 MG PO STA (22:05)
[2019-09-11 22:06] LABS: Alanine Aminotransferase 60 U/L (12-78); Albumin Level 3.8 gm/dl (3.4-5.0); Aspartate Aminotransferase 24 U/L (15-37); BUN Creatinine Ratio 14.8 (10-20); Blood Urea Nitrogen 15 mg/dl (7-18); Calcium 9.3 mg/dl (8.5-10.1); Carbon Dioxide 30 mmol/L (21-32); Chloride 105 mmol/L (98-107); Creatinine Clr Calc Pharmacy 65.3 ml/min; Est GFR (African American) 90.9; Est GFR (Non-African American) 78.4; Glucose 105 mg/dl (70-99); Lipase 352 U/L (73-393); Potassium 3.8 mmol/L (3.5-5.1); Sodium 140 mmol/L (136-145)
[2019-09-11 22:11] LABS: Alkaline Phosphatase 112 U/L (45-117); Bilirubin,Total 0.5 mg/dl (0.2-1); Globulin 3.9 gm/dl (2.5-4.0); Total Protein 7.7 gm/dl (6.4-8.2); Troponin I < 0.015 ng/ml (0-0.045)
--- NOTE | 2019-09-11 23:09 | Emergency Department Note ---
History of Present Illness General Chief Complaint: Chest Pain Stated Complaint: CHEST PAIN SWELLING IN RIGHT FOOT STOMACH PAIN Source: patient Mode of arrival: ambulatory Limitations: no limitations History of Present Illness Provider Complaint: chest pain Onset (ago): hour(s) 3 Time: 18:30 Duration: intermittent and now resolved Onset: during rest Pain Location: substernal Pain Radiation: RUE and jaw/teeth Severity: moderate Maximum Pain Intensity: 7 Current Pain Intensity: 0 Quality: + sharp Relieved By: + nothing Exacerbated By: + nothing Context: no recent illness, no recent surgery, no recent immobilization, no recent travel, no trauma/injury, no new medications and no history of DVT/PE Treatments prior to arrival: none This 63-year-old male patient presents the emergency department today, ambulatory, at the request of his . The patient has past medical history of IBS-C and hyperlipidemia. The patient states at 630 this evening after eating dinner, he developed intense chest pain which he describes as sharp, in 10- second bursts for approximately 1 hour. The patient states the pain was substernal, and he thought it may be related to indigestion. The patient did also have some jaw pain as well as right upper arm pain. The patient states he was reaching for a glass in the cabinet, but was not overexerting himself at the onset of the pain. The pain seemed to go away on its own. The pain has resolved at this time. The patient states he has been experiencing some edema in his right foot for the past 3 to 4 weeks. This does seem to be dependent in nature and improves with elevation and rest. The patient states he has been experiencing some throbbing in the left side of his upper abdomen which does get worse at bedtime. The patient has been overall feeling uneasy since the onset of the pain. Patient denies any family history of cardiac events. He is not a smoker. He denies any history of hypertension, and states his hyperlipidemia is only extremely mild. Home Medications Home Medications Medication Instructions Recorded Confirmed Type loratadine 10 mg tablet 10 mg PO DAILY tab 11/08/18 09/11/19 History lubiprostone [Amitiza] 8 mcg PO Q2D 09/11/19 09/11/19 History Allergies Allergy/AdvReac Type Severity Reaction Status Date / Time amoxicillin Allergy Intermediate RASH Verified 09/11/19 22:27 clavulanic acid Allergy Intermediate RASH Verified 09/11/19 22:27 Dust Mite Extract Allergy Unknown DUST Uncoded 09/11/19 22:27 MITES/MOLD-ITCHY EYES,CONGESTION Past Med/Surg History Medical History Acute appendicitis Cholelithiasis Incisional hernia Perforated tympanic membrane Pneumonia Retinal detachment Singers' nodes Social History Preferred Language: Danish marital status: current occupational status: employed Feels Safe at Home: Yes Smoking Status: Never smoker Review of Systems A total of 10 systems reviewed and were otherwise negative Physical Exam Vital Signs Vital Signs - 24 hr 09/11/19 20:24 09/11/19 21:39 09/11/19 21:42 Temperature 36.6 C Temperature Source Oral Pulse Rate 69 68 Pulse Rate [Bilateral Apical] Pulse Rate from SpO2 Sensor 67 Respiratory Rate 20 19 Respiratory Depth Normal Blood Pressure 148/77 H 154/89 H Blood Pressure [Left Arm] Blood Pressure Mean 100 105 Blood Pressure Mean [Left Arm] Pulse Oximetry 99 100 95 Oxygen Delivery Method Room Air Room Air Sepsis Recent Fever Within 48 Hours No Sepsis New/Unexplained Change in Mental Status No Sepsis Action Taken by Nursing No Action Required 09/11/19 21:47 09/11/19 22:00 09/11/19 22:30 Temperature Temperature Source Pulse Rate 61 68 63 Pulse Rate [Bilateral Apical] Pulse Rate from SpO2 Sensor 61 68 64 Respiratory Rate 20 17 21 Respiratory Depth Blood Pressure Blood Pressure [Left Arm] Blood Pressure Mean 110 Blood Pressure Mean [Left Arm] Pulse Oximetry 100 100 100 Oxygen Delivery Method Sepsis Recent Fever Within 48 Hours Sepsis New/Unexplained Change in Mental Status Sepsis Action Taken by Nursing 09/11/19 23:07 09/11/19 23:35 09/12/19 00:53 Temperature Temperature Source Pulse Rate Pulse Rate [Bilateral Apical] 56 L 56 L 55 L Pulse Rate from SpO2 Sensor Respiratory Rate 18 20 20 Respiratory Depth Blood Pressure Blood Pressure [Left Arm] 149/83 H 137/85 119/73 Blood Pressure Mean Blood Pressure Mean [Left Arm] 105 102 88 Pulse Oximetry 100 99 99 Oxygen Delivery Method Room Air Room Air Room Air Sepsis Recent Fever Within 48 Hours Sepsis New/Unexplained Change in Mental Status Sepsis Action Taken by Nursing 09/12/19 01:25 Temperature Temperature Source Pulse Rate Pulse Rate [Bilateral Apical] 51 L Pulse Rate from SpO2 Sensor Respiratory Rate 20 Respiratory Depth Blood Pressure Blood Pressure [Left Arm] 129/80 Blood Pressure Mean Blood Pressure Mean [Left Arm] 96 Pulse Oximetry 98 Oxygen Delivery Method Room Air Sepsis Recent Fever Within 48 Hours Sepsis New/Unexplained Change in Mental Status Sepsis Action Taken by Nursing VITALS: Vitals are noted on the nurse's note and reviewed by myself. Vital signs stable. GENERAL: This is a 63-year-old white male, in no acute distress, nondiaphoretic, well-developed well-nourished. SKIN: Sebaceous cyst noted on the right upper back. The skin was otherwise without rashes, erythema, edema, or bruising. There is no tenting of the skin. Capillary refill less than 2 seconds. HEAD: Normocephalic atraumatic. EYES: Conjunctivae without injection, sclerae without icterus. NOSE: Patent, turbinates without inflammation or discharge. No sinus tenderness. MOUTH: Mucous membranes moist. Tonsils are not enlarged. Pharynx without erythema or exudate. Uvula midline. Airway patent. Tongue does not deviate. NECK: Supple without nuchal rigidity. No lymphadenopathy. No thyromegaly. Cervical spine is nontender. No JVD. HEART: Regular rate and rhythm without murmurs gallops or rubs. LUNGS: Clear to auscultation bilaterally without wheezes, rales or rhonchi. No retractions or accessory muscle use. ABDOMEN: Positive bowel sounds x 4. Normal tympanic percussion. Soft, nontender, without masses or organomegaly. Rosales sign negative. No guarding or rebound tenderness. No CVA tenderness bilaterally. MUSCULOSKELETAL: No muscle atrophy, erythema, or edema noted. Full range of motion without joint tenderness in all extremities. No tenderness to palpation. Normal gait. Strength 5/5 throughout. NEURO: Patient was alert and oriented to person place and time. No focal neurological deficits. Course Course The patient was seen and evaluated as above. An order was placed for continuous cardiac monitoring. The monitor shows a normal sinus rhythm at a rate of 68 bpm. IV access obtained, labs drawn. Patient medicated with GI cocktail, Pepcid, IV fluids, 324 mg aspirin. Imaging performed and reviewed by myself and radiologist as noted. Labs reviewed by myself. I discussed the case with my attending physician. I discussed the findings with the patient at bedside. He was reassessed and notes some improvement in his symptoms. I did recommend admission, the patient was agreeable. I discussed the case with the medical and health services manager. I discussed the case with Dr. Mott, [facility] hospitalist. He did agree to see and evaluate the patient for admission. Administered Medications Discontinued Medications Al Hydrox/Mg Hydrox/Simethicone () 1 dose PO ONE ONE Stop: 09/11/19 22:06 Last Admin: 09/11/19 22:19 Dose: 1 dose Documented by: [id number] Aspirin (Aspirin) 324 mg PO NOW STA Stop: 09/11/19 22:06 Last Admin: 09/11/19 22:19 Dose: 324 mg Documented by: [id number] Famotidine (Pepcid 20mg Iv Push) 20 mg in 5 mls @ 2.5 mls/min IV NOW STA Stop: 09/11/19 22:06 Last Admin: 09/11/19 22:19 Dose: 2.5 mls/min Documented by: [id number] Sodium Chloride (Nss 1000ml) 1,000 mls @ 999 mls/hr IV .Q1H1M ONE Stop: 09/11/19 23:05 Last Infusion: 09/11/19 23:32 Dose: 0 mls/hr Documented by: [id number] Admin: 09/11/19 22:19 Dose: 999 mls/hr Documented by: [id number] Medical Decision Making Differential Diagnosis + stable angina, + unstable angina pectoris, + atypical chest pain, + st elevation myocardial infarction, + costochondritis, + chest pain, + biliary colic, + cardiac ischemia, + myocarditis, + pericarditis, + pleurisy, + aortic dissection, + pulmonary embolism, + pneumonia, + musculoskeletal, + infections, + cholecystitis, + pancreatitis and + esophageal rupture Medical Records Attestation: I reviewed the patient's medical records. Home Medications Current Medication List: was personally reviewed by me Laboratory Data Attestation: I reviewed the patient's lab results. Lab results narrative: No leukocytosis, anemia, thrombocytopenia. Renal, hepatic function, and electrolytes without significant abnormality. Coags normal. Result diagrams: 09/11/19 21:39 09/11/19 21:39 Labs: Lab Results 06/08/20 06/08/20 06/08/20 Range/Units 21:39 21:39 21:39 WBC 6.79 (4.8-10.8) K/uL RBC 4.96 (4.7-6.1) M/uL Hgb 14.8 (14.0-18.0) g/dL Hct 44.0 (42-52) % MCV 88.7 (80-100) fL MCH 29.8 (25-34) pg MCHC 33.6 (32-36) g/dL RDW Std Deviation 41.1 (36.4-46.3) fL RDW Coeff of Bryce 12.8 (11.5-14.5) % Plt Count 241 (130-400) K/uL MPV 10.0 (7.4-10.4) fL Immature Gran % (Auto) 0.1 % Neut % (Auto) 45.6 % Lymph % (Auto) 44.0 % Milam % (Auto) 6.8 % Eos % (Auto) 3.4 % Baso % (Auto) 0.1 % Immature Gran # (Auto) 0.01 (0.00-0.02) K/uL Neut # (Auto) 3.09 (1.4-6.5) K/uL Lymph # (Auto) 2.99 (1.2-3.4) K/uL Milam # (Auto) 0.46 (0.11-0.59) K/uL Eos # (Auto) 0.23 (0-0.5) K/uL Baso # (Auto) 0.01 (0-0.2) K/uL PT 10.3 (9.0-12.0) Seconds INR 1.0 (0.9-1.1) APTT 26.8 (21.0-31.0) Seconds PTT Ratio 1.0 Sodium 140 (136-145) mmol/L Potassium 3.8 (3.5-5.1) mmol/L Chloride 105 (98-107) mmol/L Carbon Dioxide 30 (21-32) mmol/L Anion Gap 4.0 (3-11) BUN 15 (7-18) mg/dl Creatinine 1.02 (0.6-1.4) mg/dl Est Cr Clr Drug Dosing 65.3 ml/min Est GFR ( Amer) 90.9 Est GFR (Non-Af Amer) 78.4 BUN/Creatinine Ratio 14.8 (10-20) Glucose 105 H (70-99) mg/dl Calcium 9.3 (8.5-10.1) mg/dl Total Bilirubin 0.5 (0.2-1) mg/dl AST 24 (15-37) U/L ALT 60 (12-78) U/L Alkaline Phosphatase 112 (45-117) U/L Troponin I < 0.015 (0-0.045) ng/ml Total Protein 7.7 (6.4-8.2) gm/dl Albumin 3.8 (3.4-5.0) gm/dl Globulin 3.9 (2.5-4.0) gm/dl Albumin/Globulin Ratio 1.0 (0.9-2) Lipase 352 (73-393) U/L Imaging Data Venous US: Radiologist's impression: US VENOUS RIGHT LOWER EXTREMITY: No DVT. No mass or adenopathy. Radiologist: Lance Hernandes M.D. Chest x-ray: My impression: Chest x-ray. Findings: A chest x-ray was performed and revealed no pneumothorax, effusion, infiltrate, pulmonary edema, free air under the diaphragm, or wide mediastinum. ECG Data Attestation: I personally reviewed and interpreted this ECG as follows: Indication: chest pain Rate (beats per minute): 63 Findings: no ST depression, no T-wave inversion, no ST elevation, no acute ischemic change and no ectopy Comparison ECG Date: from (2009) Change: no significant change Blood Pressure Blood Pressure Findings: Elevated blood pressure Blood Pressure Disposition: further management by hospitalist JOYCELYN Nixon This 63-year-old male patient presents the emergency department today for sudden onset of substernal chest pain radiating to the shoulder and jaw. The patient was resting at the time of the onset of the pain. He is also been experiencing some right foot edema intermittently for the past 3 to 4 weeks. Patient's pain had resolved upon arrival to the ED, but he continues to feel uneasy. Pain was nonexertional in nature, but due to the quality and radiation, was concerning for possible cardiac etiology. Initial work-up here in the ED overall negative. Initial troponin and EKG without acute ischemic findings. Patient's symptoms did seem to respond somewhat to GI cocktail and Pepcid. I do question gastric etiology, however do recommend admission for ongoing cardiac work-up. The patient was agreeable. He will be admitted to the [facility] hospitalist agustina calhoun. Please see hospitalist dictation regarding ongoing management care of this patient. The chart was completed utilizing [employer] Speech voice recognition software. Grammatical errors, random word insertions, pronoun errors, and incomplete sentences are an occasional consequence of this system due to software limitations, ambient noise, and hardware issues. Any formal questions or concerns about the content, text, or information contained within the body of this dictation should be directly addressed to the provider for clarification. Impression & Plan Chest pain, Irritable bowel syndrome Discharge Plan Visit Data *Final* Discharge Date/Time: 09/12/19 02:02 Chief Complaint: Chest Pain Stated Complaint: CHEST PAIN SWELLING IN RIGHT FOOT STOMACH PAIN ED Provider: Jeremías Vernon ED Midlevel Provider: Anca Youngblood Discharge Problem: Chest pain, Irritable bowel syndrome Patient Disposition: Admitted As Inpatient Discharge Instructions Interventions: ED Discharge Assessment Last Done: 09/12/19 02:02
--- NOTE | 2019-09-12 01:55 | History & Physical Report ---
Date of Service September 12, 2019 Assessment & Plan (1) Chest pain: Mr. Faheem Berman is a 63 y/o male with past medical hx of IBS-C, environmental allergies, appendectomy, cholecystectomy who presented to [facility] ED for CC of Chest pain. - Continue with cardiac workup; differential includes esophageal spasm, adverse reaction to medication Amitiza causing symptoms. - Electrolytes were WNL, tend in AM - Initial trop negative, continue to trend. - Cardiac monitoring with tele - ECG for chest pain - Stress Echo in the AM Suspect this is GI related with possible exacerbation from Amitiza as this was listed under common Adverse Effects. This didn't occur after a meal which could be simple GERD caused by classic triggering foods, which would not support GI. Would recommend Pepcid as outpatient. (2) Edema of right foot: Dorsal of right foot - non pitting US RLE DVT negative for DVT Agree with PCP that this is most likely combination of venous insufficiency and decreased physical activity. Recommend compression socks/stockings and increase physical activity, limit salt intake. (3) Irritable bowel syndrome with constipation: As above (4) Allergic rhinitis due to pollen: c/w home loratadine (5) Allergic rhinitis due to dust: c/w home loratadine History of Present Illness Chief Complaint: Chest Pain Primary Care Provider: Brandon Weber MD Mr. Faheem Berman is a 63 y/o male with past medical hx of IBS-C, environmental allergies, appendectomy, cholecystectomy who presented to [facility] ED for CC of Chest pain. He notes that around 5pm, prior to dinner, he had sudden onset of stabbing central and left sided chest pain. He notes that episodes would last for about 10 seconds then return. He states that this lasted about one hour. He states pain radiated to bilateral jaw and right arm. He notes that he thought symptoms were probably related to indigestion. He notes this as he had significant belching, which was an alleviating factor. 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 Faheem denied dizziness, diaphoresis, nausea, vomiting. He did note no significant shortness of breath but stated he "felt off" which was concerning for him. His was strong advocate for patient coming to hospital for cardiac eval. He states he started Amitiza for IBS-C in fall. His last BM was yesterday. No ch georges in his IBS bowel habits. He states he is active and hasn't had any chest pain with walking or using stairs. He has no first degree relatives with heart dz. Is a non-smoker. No personal history of heart disease. He did receive aspirin 324mg, Pepcid IV, 1L NSS bolus, GI cocktail. He also notes a about a 6-8 week history of right dorsal foot swelling. He notes this was worse with standing all day and alleviated with elevating his legs and using compression socks. He denies any prior DVT. No recent prolonged travel to provoke/risk for DVT. He does not that he has decreased the salt intake of his diet. He did have a LE US DVT which didn't show DVT. He was also seen for same by his PCP Dr. Weber who suspected cause was from venous insufficiency and decreased physical activity. Review of old EMR shows that patient had increase in dyspepsia after starting Amitiza. 02/28/19 Office Visit note: He has been evaluated by 2 different surgeons since he had ultrasound evidence of recurrent hernia. However he does not have enough problems to warrant surgery at this time. He was evaluated by his PCP who recommended Pepcid. He notes that he is prone to getting pain from his reflex but pain is migratory and never has consistent location for his pain. This was in response to asking if he felt this pain was like his reflux but worse. He noted that symptoms were more concerning than dyspepsia pain. Allergies Allergy/AdvReac Type Severity Reaction Status Date / Time amoxicillin Allergy Intermediate RASH Verified 09/11/19 22:27 clavulanic acid Allergy Intermediate RASH Verified 09/11/19 22:27 Dust Mite Extract Allergy Unknown DUST Uncoded 09/11/19 22:27 MITES/MOLD-ITCHY EYES,CONGESTION Home Medications Home Medications Medication Instructions Recorded Confirmed Type loratadine 10 mg tablet 10 mg PO DAILY tab 11/08/18 09/11/19 History Amitiza 8 mcg PO Q2D 09/11/19 09/11/19 History Past Med/Surg History Medical History Acute appendicitis Cholelithiasis Incisional hernia Perforated tympanic membrane Pneumonia Retinal detachment Singers' nodes Social History Preferred Language: Mexican Communication Ability: Effective Beliefs That Will Affect Care: None marital status: Current Living Situation: Spouse and Family Current Living Situation Comment: Lives at home w/ and youngest son current occupational status: employed Feels Safe at Home: Yes Smoking Status: Never smoker Second Hand Exposure: No ; Hx Alcohol Use: No Hx Substance Use: No Review of Systems Review of Systems: All systems reviewed & are unremarkable except as noted in HPI & below Constitutional: no fever, no chills and no sweats Eyes: no diplopia and no worsening vision Ear, Nose, Mouth, Throat: no dental pain and no sore throat Respiratory: no cough and no dyspnea on exertion Cardiovascular: no dyspnea at rest and no palpitations Gastrointestinal: no abdominal pain, no nausea, no vomiting and no change in bowel habits Genitourinary: no dysuria and no difficulty urinating Musculoskeletal: no back pain and no neck pain Neurologic: no localized weakness, no numbness and no syncope Endocrine: no polydipsia, no polyphagia and no polyuria Physical Exam Constitutional: WD/WN, vitals as above cooperative and comfortable Eyes: PERRL, conjunctivae normal, anicteric sclerae ENMT: external ear and nose normal, oropharynx normal Neck: normal visual inspection and trachea midline Respiratory: normal respiratory effort, lungs clear to auscultation Cardiovascular: Rate/Rhythm: regular rhythm and + bradycardic Gastrointestinal (Abdomen): Inspection/Auscultation: normal bowel sounds Percussion/Palpation: abdomen soft; abdomen nontender, no guarding and abdomen not rigid Musculoskeletal: Head/Neck/Chest: normocephalic and head atraumatic mild dorsal swelling of right foot, non-pitting, no overlying skin changes Skin: no rashes, warm and dry Neurologic: moves all extremities and awake Psychiatric: A+Ox3, euthymic affect Results & Data Results & Data ([facility] [place]) Vital Signs (Past 12 Hours) Vital Signs Temp Pulse Pulse Resp BP BP Pulse Ox 09/12/19 00:53 55 L 20 119/73 99 09/11/19 23:35 56 L 20 137/85 99 09/11/19 23:07 56 L 18 149/83 H 100 09/11/19 22:30 63 21 100 09/11/19 22:00 68 17 100 09/11/19 21:47 61 20 100 09/11/19 21:42 95 09/11/19 21:39 68 19 154/89 H 100 09/11/19 20:24 36.6 C 69 20 148/77 H 99 Code Status & VTE Plan Code Status full code VTE Prophylaxis Plan VTE Prophylaxis will be ordered: Yes Supervising Physician Co-Signing Physician Notes Attending addendum: I have physically seen this patient, have supervised the medical residents activities, and agree with the H&P unless as otherwise noted. Assessment and Plan: Chest pain of uncertain etiology- The patient will be admitted to telemetry for serial cardiac enzymes, serial EKG's, cardiac rhythm monitoring and a 2-D echocardiogram with Dopplers. Irritable bowel syndrome with constipation- Hold Amitiza. Famotidine 20 mg IV every 12 hours Follow clinical examination, as may because of chest pain. Remainder of orders and notations as noted. Resident Activity Tracking Resident Involvement: Resident Care Provided Care Provided: Adult Hospital Medicine
[2019-09-12] MEDS ORDERED: ALUMINUM/MAGNESIUM SUSP 30 ML UDC PO PRN (02:18)
[2019-09-12] MEDS ORDERED: POLYETHYLENE (MIRALAX) 17 GM PACK PO PRN (02:18)
[2019-09-12] MEDS ORDERED: ACETAMINOPHEN 325 MG TAB PO PRN (02:18)
[2019-09-12] MEDS ORDERED: MAGNESIUM HYDROXIDE SUSP 30 ML UDC PO PRN (02:18)
[2019-09-12] MEDS ORDERED: NITROGLYCERIN SL 0.4 MG/TAB TAB SL PRN (02:18)
[2019-09-12 04:12] LABS: Chol HDL Ratio 5; Cholesterol 176 mg/dl (0-200); HDL Cholesterol 33 mg/dl; LDL Cholesterol Calculated 114 mg/dl; Triglycerides 144 mg/dl (0-150); Troponin I < 0.015 ng/ml (0-0.045); VLDL Cholesterol 29 mg/dl
--- NOTE | 2019-09-12 06:28 | Ultrasound Report ---
RIGHT LOWER EXTREMITY VENOUS DOPPLER CLINICAL HISTORY: Right lower extremity edema. COMPARISON STUDY: No previous studies for comparison. TECHNIQUE: Sonography of the deep venous system of the right lower extremity was performed. Compress ion and augmentation were evaluated. FINDINGS: The right common femoral, superficial femoral and popliteal veins were compressible. Augme ntation was normal. Flow was shown within the deep calf vessels. IMPRESSION: No evidence of deep venous thrombus within the right lower extremity. ACT 112: Negative or not required by law. Electronically signed by: Theo Alexander M.D. 09/12/2019 6:26 AM
--- NOTE | 2019-09-12 06:41 | Electrocardiogram Report ---
Test Reason : Blood Pressure : / mmHG Vent. Rate : 063 BPM Atrial Rate : 063 BPM P-R Int : 156 ms QRS Dur : 096 ms QT Int : 428 ms P-R-T Axes : 053 012 033 degrees QTc Int : 437 ms Normal sinus rhythm Incomplete right bundle branch block Borderline ECG When compared with ECG of 21-JAN-2010 10:07, No significant change was found Confirmed by Benjamin Mitchell ([id number]) on 09/12/2019 6:40:42 AM Referred By: REFERRED SELF Confirmed By:Benjamin Mitchell
--- NOTE | 2019-09-12 07:18 | XRay Report ---
XR chest 1V portable CLINICAL HISTORY: Chest Pain COMPARISON STUDY: Chest CT September 14, 2011. FINDINGS: Lung volumes are normal. Lungs are clear. There is no pneumothorax or pleural effusion. Car diac size is stable. Mediastinal contours are normal. There is no evidence for pulmonary edema. IMPRESSION: No acute cardiopulmonary findings. ACT 112: Negative or not required by law. Electronically signed by: Theo Alexander M.D. 09/12/2019 7:17 AM
[2019-09-12] MEDS ORDERED: LORATADINE 10 MG TAB PO SCH (09:00)
--- NOTE | 2019-09-12 14:04 | XCELERA ---
[id number]
--- NOTE | 2019-09-12 16:21 | Discharge Summary ---
Date of Service September 12, 2019 Admission HPI Per Admitting Provider Mr. Faheem Berman is a 63 y/o male with past medical hx of IBS-C, environmental allergies, appendectomy, cholecystectomy who presented to [facility] ED for CC of Chest pain. He notes that around 5pm, prior to dinner, he had sudden onset of stabbing central and left sided chest pain. He notes that episodes would last for about 10 seconds then return. He states that this lasted about one hour. He states pain radiated to bilateral jaw and right arm. He notes that he thought symptoms were probably related to indigestion. He notes this as he had significant belching, which was an alleviating factor. His symptoms resolved [employer], and he has not had any further episodes since arriving to ED. Faheem denied dizziness, diaphoresis, nausea, vomiting. He did note no significant shortness of breath but stated he "felt off" which was concerning for him. His was strong advocate for patient coming to hospital for cardiac eval. He states he started Amitiza for IBS-C in Fall of 2018. His last BM was yesterday. No ch georges in his IBS bowel habits. He states he is active and hasn't had any chest pain with walking or using stairs. He has no first degree relatives with heart dz. Is a non-smoker. No personal history of heart disease. He did receive aspirin 324mg, Pepcid IV, 1L NSS bolus, GI cocktail. He also notes a about a 6-8 week history of right dorsal foot swelling. He notes this was worse with standing all day and alleviated with elevating his legs and using compression socks. He denies any prior DVT. No recent prolonged travel to provoke/risk for DVT. He does not that he has decreased the salt intake of his diet. He did have a LE US DVT which didn't show DVT. He was also seen for same by his PCP Dr. Weber who suspected cause was from venous insufficiency and decreased physical activity. Review of old EMR shows that patient had increase in dyspepsia after starting Amitiza. 02/28/19 Office Visit note: He has been evaluated by 2 different surgeons since he had ultrasound evidence of recurrent hernia. However he does not have enough problems to warrant surgery at this time. He was evaluated by his PCP who recommended Pepcid. He notes that he is prone to getting pain from his reflex but pain is migratory and never has consistent location for his pain. This was in response to asking if he felt this pain was like his reflux but worse. He noted that symptoms were more concerning than dyspepsia pain. Principal Diagnosis upper GI related chest pain Discharge Exam gen aaox3 pleasant nad heent nc at mmm breathing unlabored no accessory muscles good effort skin no rashes no pallor or icterus no focal neuro deficits Discharge Data Allergies Allergy/AdvReac Type Severity Reaction Status Date / Time amoxicillin Allergy Intermediate RASH Verified 09/11/19 22:27 clavulanic acid Allergy Intermediate RASH Verified 09/11/19 22:27 Dust Mite Extract Allergy Unknown DUST Uncoded 09/11/19 22:27 MITES/MOLD-ITCHY EYES,CONGESTION Consultations 09/11/19 23:54 ED Decision to Admit Stat Ordered Studies 09/11/19 22:03 US venous doppler LE RT Urgent Hospital Course (1) Chest pain: presented w symptoms most likely UGI but concerns for ACS -fortunately EKG, troponins ruled out NE -stress echo negative for ischemia (both echo and ECG) at 95% MPHR, exercised for 4:20 achieving 6.1 METS --->has longstanding IBS, thought pain/discomfort was probably UGI but was concerned since it was new and different for him, fortunately above w/u negative and most likely dx was UGI related. stable for home. Total Time Total Time Spent Total Time Spent (In Minutes): <30 Discharge Plan Discharge Items Patient Disposition: Home - Self-Care Reason For Visit: CHEST PAIN Discharge Diagnosis: chest pain Activity: Per Instructions section Non-emergency contact: Primary Care Provider Call non-emergency contact if: your symptoms worsen Follow-up/Referrals: Brandon Weber MD [Primary Care Provider] - 09/15/19 9:30 am (Please, follow up at Dr. Weber's office with his associate, Lola Hurtado PA-C, on WednesdaySeptember 14 at 9:30 am. *If you need to change this appointment, call their office at [phone].) Diet: Regular Addtl Attending Provider Instructions: Chest pain You came to the hospital for chest pain, that went up to your arm and jaw. When you came to the hospital we did a workup that included labs w/ reassuring Troponin that show us stress on the heart. You also had a stress echocardiogram to see if there was any abnormality within your heart when you were put under stress. The stress echocardiogram was normal and did not show any concerns of decreased blood flow to vessels within your heart. The chest pain that you were experiencing could be from several causes, including reflux. You felt that this chest pain felt similar to indigestion and this is the most likely cause. Other causes include strain of the muscles or cartilage of the chest, this was also possible given that you were tender this morning within your chest. Another possible cause of chest pain includes anxiety, this is less likely in your case given that you were not endorsing any increased stress or anxiety lately. For reflux, you can follow up with you PCP and try over the counter acid suppressing medication to see if this offers relief. Pending Studies at Discharge: No Stand-Alone Forms: [facility] [employer], Smoking Cessation Medications and DC Order Prescriptions: Continued loratadine 10 mg tablet 10 mg PO DAILY RF: 0 Amitiza 8 mcg capsule 8 mcg PO Q2D RF: 0 Discharge Orders: Discharge Order (Routine); Ordered 09/12/19 Ordered By: Hamzah Gordon/Other Patient Handouts: ED Chest Pain NonCardiac Admission Data Admit Date/Time: 09/12/19 01:31 Attending Provider: Jeremías Curtis Admit Provider: Carlos Rodriges Primary Care Provider: Brandon Weber Other Providers: Zelalem Jcakson Other Interventions: Discharge Summary Assessment (RN) Last Done: 09/12/19 16:03 Coding Level of Care Code 84044 OBS Care - Discharge Diagnoses Chest pain R07.9
--- NOTE | 2019-09-13 05:33 | Billing Data ---
Date of Service September 13, 2019 Coding Level of Care Code 90370 OBS Care - Level 2
== END 2019-09-12 17:18 | disposition home or self-care (01) ==
LOC: ED 20:20 → 2N 20:20 → SUATTDRO 09-12 01:31 → 2N 09-12 02:02